=== PATIENT | female | born 1990 | race Hispanic/Latino ===

== ENCOUNTER 2017-11-30 17:07 | Emergency (ER) | payer OTHER ==
[2017-11-30 17:15] VITALS: TEMP 98; O2SAT 100
[2017-11-30] MEDS ORDERED: Sodium Chloride 0.9% 1,000 ML IV STA (17:48)
[2017-11-30 18:20] LABS: BASO % 0.6 % (0.0-2.0); EOS # 0.1 K/uL (0.0-0.7); EOS % 0.7 % (0.0-4.0); HEMOGLOBIN 13.5 g/dL (12.0-16.0); LYMPH # 2.1 K/uL (1.0-4.3); LYMPH % 26.9 % (20.0-40.0); MEAN CORPUSCULAR HEMOGLOBIN 29.3 pg (27.0-31.0); MEAN CORPUSCULAR HGB CONC 33.7 g/dL (33.0-37.0); MEAN PLATELET VOLUME 7.9 fl (7.2-11.7); MONO # 0.4 K/uL (0.0-0.8); NEUT # 5.1 K/uL (1.8-7.0); NEUT % 66.8 % (50.0-75.0); RBC 4.61 Mil/uL (3.80-5.20); RED CELL DISTRIBUTION WIDTH 12.4 % (11.5-14.5); WHITE BLOOD COUNT 7.7 K/uL (4.8-10.8)
--- NOTE | 2017-11-30 18:32 | ED PDOC ---
HPI: Headache Time Seen by Provider: 11/30/17 17:22 Chief Complaint (Nursing): Headache Chief Complaint (Provider): Headache History Per: Patient History/Exam Limitations: no limitations Onset/Duration Of Symptoms: Hrs (earlier this morning) Current Symptoms Are (Timing): Still Present Additional Complaint(s): 27 year old female, with a self diagnosed history of migraines since puberty, presents to the ED for evaluation of a headache that began this morning. She states it began today with normal symptoms, but progressed to pain in the occiptial area of her head radiating to her neck and jaw. Patient notes she took Motrin 400 mg approximately thirty minutes prior to arrival with some relief. Otherwise, denies nausea, vision changes, loss of balance, fever, and trauma. She also denies knowing any triggers for her headaches or having any prior workup for this issue. Of note, patient is not on control. PMD: none provided Past Medical History Reviewed: Historical Data, Nursing Documentation, Vital Signs Vital Signs: Last Vital Signs Temp 98.0 F 11/30/17 17:11 Pulse 97 H 11/30/17 17:11 Resp 20 11/30/17 17:11 BP 137/90 11/30/17 17:11 Pulse Ox 100 11/30/17 17:11 - Medical History PMH: Migraine (self diagnosed) - Surgical History Surgical History: No Surg Hx - Family History Family History: States: Unknown Family Hx - Social History Current smoker - smoking cessation education provided: No Alcohol: Social Drugs: Denies - Home Medications Home Medications: Ambulatory Orders Medication Instructions Recorded Acetaminophen/Butalbital/Caf 1 - 2 tab PO Q6 PRN #12 tab 11/30/17 [Fioricet] - Allergies Allergies/Adverse Reactions: Allergies Allergy/AdvReac Type Severity Reaction Status Date / Time No Known Allergies Allergy Verified 11/30/17 17:09 Review of Systems ROS Statement: Except As Marked, All Systems Reviewed And Found Negative Constitutional: Negative for: Fever, Other (trauma) Eyes: Negative for: Vision Change Gastrointestinal: Negative for: Nausea Musculoskeletal: Positive for: Neck Pain Neurological: Positive for: Headache. Negative for: Other (loss of balance) Physical Exam - Reviewed Nursing Documentation Reviewed: Yes Vital Signs Reviewed: Yes - Physical Exam Appears: Positive for: No Acute Distress Head Exam: Positive for: ATRAUMATIC (but tendernedd to occipital scalp), NORMOCEPHALIC Skin: Positive for: Normal Color, Warm, Dry Eye Exam: Positive for: Normal appearance, EOMI, PERRL ENT: Positive for: Normal ENT Inspection, TM Is/Are (unremarkable). Negative for: Pharyngeal Erythema, Tonsillar Exudate, Tonsillar Swelling Neck: Negative for: Painless ROM (tenderness with ROM) Cardiovascular/Chest: Positive for: Regular Rate, Rhythm. Negative for: Murmur Respiratory: Positive for: Normal Breath Sounds. Negative for: Accessory Muscle Use, Respiratory Distress Gastrointestinal/Abdominal: Positive for: Normal Exam, Soft. Negative for: Tenderness Back: Positive for: Normal Inspection. Negative for: L CVA Tenderness, R CVA Tenderness, Vertebral Tenderness Extremity: Positive for: Normal ROM Neurologic/Psych: Positive for: Alert, grab setter II-XII (intact), Oriented (x3), Gait (steady), Other (coordination and strength fully intact). Negative for: Motor/ Sensory Deficits, Aphasia, Facial Droop - Laboratory Results Result Diagrams: 11/30/17 18:16 11/30/17 18:16 - ECG O2 Sat by Pulse Oximetry: 100 (RA) Pulse Ox Interpretation: Normal Medical Decision Making Medical Decision Making: Ddx: migraine headache, dissecting vertebral artery, tension headache, mass versus other Time: 17:37 Initial Plan: --CT Head without contrast --CMP --Urine --Urine dipstick --CBC with differential --Glucose, POC --Normal Saline 1000ml IV --Reglan 10mg IVP --Toradol 15mg IVP Patient will be given a migraine cocktail, and have imaging of her brain since it has never been done before. It was discussed with patient that if symptoms do not improve, she may need a CT Angio of her head and neck. Scribe Attestation: Documented by Harika Lozada, acting as a scribe for Rishi Hoover III, DO. Provider Scribe Attestation: All medical entries made by the Scribe were at my direction and personally dictated by me. I have reviewed the chart and agree that the record accurately reflects my personal performance of the history, physical exam, medical decision making, and the department course for this patient. I have also personally directed, reviewed, and agree with the discharge instructions and disposition. Disposition - Clinical Impression Clinical Impression: Migraine - Patient ED Disposition Is Patient to be Admitted: Transfer of Care - Disposition Referrals: [facility] [Outside] Jason Castro MD [Staff Provider] - Disposition: Transfer of Care Disposition Time: 19:04 Condition: IMPROVED Additional Instructions: JANETH FERRARI, thank you for letting us take care of you today. Your provider was Jack Esquivel MD and you were treated for HEADACHE. The emergency medical care you received today was directed at your acute symptoms. If you were prescribed any medication, please fill it and take as directed. It may take several days for your symptoms to resolve. Return to the Emergency Department if your symptoms worsen, do not improve, or if you have any other problems. Please contact your doctor or call one of the physicians/clinics you have been referred to that are listed on the Patient Visit Information form that is included in your discharge packet. Bring any paperwork you were given at discharge with you along with any medications you are taking to your follow up visit. Our treatment cannot replace ongoing medical care by a primary care provider outside of the emergency department. Thank you for allowing the [facility] team to be part of your care today. If you had an X-Ray or CT scan: A Radiologist will review the ED reading if any change in treatment is needed we will contact you. If you had a blood, urine, or wound culture: It will take several days for the results, if any change in treatment is needed we will contact you. If you had an STI test: It will take 48 hours for the results. Please call after 1 week if you have not heard back. Prescriptions: Acetaminophen/Butalbital/Caf [Fioricet] 1 - 2 tab PO Q6 PRN #12 tab PRN Reason: Headache Instructions: Migraine Headaches in Adults Forms: [facility] ([place]) Patient Signed Over To: Jack Esquivel
[2017-11-30 18:35] LABS: ALB/GLOB RATIO 1.4 (1.0-2.1); ALBUMIN 4.8 g/dL (3.5-5.0); ALT/SGPT 44 U/L (9-52); AST/SGOT 35 U/L (14-36); BLOOD UREA NITROGEN 11 mg/dl (7-17); CALCIUM 10.3 mg/dL (8.4-10.2); GFR AFRICAN-AMERICAN > 60; GFR NON-AFRICAN AMERICAN > 60
--- NOTE | 2017-11-30 18:52 | CT ---
PROCEDURE: CT HEAD WITHOUT CONTRAST. HISTORY: occipital headache COMPARISON: None available. TECHNIQUE: Axial computed tomography images were obtained through the head/brain without intravenous contrast. Radiation dose: Total exam DLP = 827.37 mGy-cm. This CT exam was performed using one or more of the following dose reduction techniques: Automated exposure control, adjustment of the mA and/or kV according to patient size, and/or use of iterative reconstruction technique. FINDINGS: HEMORRHAGE: No intracranial hemorrhage. BRAIN: Normal wheeler-white matter differentiation and density are appreciated throughout the cerebrum and cerebellum with the brainstem appearing unremarkable as well. There is no mass effect. There is no suspicious extra-axial fluid collection and the midline brain anatomy appears diffusely unremarkable. VENTRICLES: Unremarkable. No hydrocephalus. CALVARIUM: Unremarkable. PARANASAL SINUSES: Unremarkable as visualized. No significant inflammatory changes. MASTOID AIR CELLS: Unremarkable as visualized. No inflammatory changes. OTHER FINDINGS: None. IMPRESSION: Unremarkable noncontrast head CT.
--- NOTE | 2017-11-30 19:53 | ED PDOC ---
- Laboratory Results Result Diagrams: 11/30/17 18:16 11/30/17 18:16 - ECG O2 Sat by Pulse Oximetry: 100 (RA) Medical Decision Making Medical Decision Making: At 19:00 patient signed out to provider pending CT and reevaluation. 18:[address] FINDINGS: HEMORRHAGE: No intracranial hemorrhage. BRAIN: Normal wheeler-white matter differentiation and density are appreciated throughout the cerebrum and cerebellum with the brainstem appearing unremarkable as well. There is no mass effect. There is no suspicious extra-axial fluid collection and the midline brain anatomy appears diffusely unremarkable. VENTRICLES: Unremarkable. No hydrocephalus. CALVARIUM: Unremarkable. PARANASAL SINUSES: Unremarkable as visualized. No significant inflammatory changes. MASTOID AIR CELLS: Unremarkable as visualized. No inflammatory changes. OTHER FINDINGS: None. IMPRESSION: Unremarkable noncontrast head CT. 20:40 Patient was reevaluated and states her headache has resolved but still has very mild neck pain. Her CT results were discussed with her and all questions were answered at this time. She agreed that she will follow up with a recommended local neurologist. Patient is stable for discharge. Scribe Attestation: Documented by Harika Lozada, acting as a scribe for Jack Esquivel MD. Provider Scribe Attestation: All medical entries made by the Scribe were at my direction and personally dictated by me. I have reviewed the chart and agree that the record accurately reflects my personal performance of the history, physical exam, medical decision making, and the department course for this patient. I have also personally directed, reviewed, and agree with the discharge instructions and disposition. Disposition Counseled Patient/Family Regarding: Studies Performed, Diagnosis, Need For Followup - Clinical Impression Clinical Impression: Migraine - POA Present On Arrival: None - Disposition Referrals: [facility] [Outside] Jason Castro MD [Staff Provider] - Disposition: Routine/Home Disposition Time: 20:45 Condition: IMPROVED Additional Instructions: JAENTH FERRARI, thank you for letting us take care of you today. Your provider was Jack Esquivel MD and you were treated for HEADACHE. The emergency medical care you received today was directed at your acute symptoms. If you were prescribed any medication, please fill it and take as directed. It may take several days for your symptoms to resolve. Return to the Emergency Department if your symptoms worsen, do not improve, or if you have any other problems. Please contact your doctor or call one of the physicians/clinics you have been referred to that are listed on the Patient Visit Information form that is included in your discharge packet. Bring any paperwork you were given at discharge with you along with any medications you are taking to your follow up visit. Our treatment cannot replace ongoing medical care by a primary care provider outside of the emergency department. Thank you for allowing the [facility] team to be part of your care today. If you had an X-Ray or CT scan: A Radiologist will review the ED reading if any change in treatment is needed we will contact you. If you had a blood, urine, or wound culture: It will take several days for the results, if any change in treatment is needed we will contact you. If you had an STI test: It will take 48 hours for the results. Please call after 1 week if you have not heard back. Prescriptions: Acetaminophen/Butalbital/Caf [Fioricet] 1 - 2 tab PO Q6 PRN #12 tab PRN Reason: Headache Instructions: Migraine Headaches in Adults Forms: [employer] ([place])
[2017-11-30 20:03] VITALS: BP 102/66; PULSE 68; RESP 18
== END 2017-11-30 20:48 | disposition home or self-care (01) ==
LOC: H.ER 17:07
DX: G43.909 Migraine, unspecified, not intractable, without status migrainosus (principal)
CPT/HCPCS: 70450; 80053; 81025; 82948; 85025; 96374; 96375; 99285; J1885; J2765; J7030